=== PATIENT | female | born 1990 | race Caucasian/White ===

== ENCOUNTER 2021-05-23 16:08 | Emergency (ER) | payer OTHER, SELFPAY ==
--- NOTE | 2021-05-23 16:11 | ED.URI ---
HPI - URI/Sore Throat General Chief Complaint: Recheck/Abnormal Lab/Rx Stated Complaint: Trouble breathing Time Seen by Provider: 05/23/21 16:11 Source: patient and RN notes reviewed History of Present Illness HPI Narrative: Patient is a 30-year-old female who presents the urgent care requesting a refill of her inhaler. Patient states that she is recently going through switching physicians and she has been unable to get a refill of the inhaler. Patient states that her appointment with a new physician is not until the end of May. Patient denies of any shortness of breath but states she has had intermittent difficulty breathing due to her chronic asthma and recent weather changes. Patient denies of any cough or upper respiratory complaints. No other acute complaints. No acute distress noted. Patient read the plan of care. Some parts of this dictation were generated by voice recognition software and may contain typographical and/or grammatical inaccuracies. Related Data Home Medications Medication Instructions Recorded Confirmed albuterol sulfate 2 puff INHALATION PRN PRN 05/23/21 05/23/21 budesonide-formoterol [Symbicort] 2 puff INHALATION BID 05/23/21 05/23/21 montelukast 10 mg PO DAILY 05/23/21 05/23/21 Allergies Allergy/AdvReac Type Severity Reaction Status Date / Time No Known Allergies Allergy Verified 05/23/21 16:16 Review of Systems Review of Systems: CONSTITUTIONAL: Denies fever, chills, or sweats. EYES: Denies visual changes, redness, or discharge. ENT: Denies rhinorrhea, congestion, sore throat, or otalgia. CARDIOVASCULAR: Denies chest pain, palpitations, or edema. RESPIRATORY: Reports of intermittent acute on chronic dyspnea due to asthma GASTROINTESTINAL: Denies abdominal pain, nausea, vomiting, or diarrhea. GENITOURINARY: Denies dysuria or hematuria. SKIN: Denies rash or itching. MUSCULOSKELETAL: Denies back pain, joint pain, or myalgia. NEUROLOGIC: Denies headache, numbness, or weakness. All other systems reviewed are negative, except as documented in HPI. PMFSH Comments At the time of my signature, I reviewed and agree with the nursing past medical, surgical, social, and family history. There is no relevant family history pertinent to the patient complaint. Exam Narrative: GENERAL: This is a well-nourished, well-developed patient, in no apparent distress. HEAD: normocephalic, atraumatic. EYES: PERRL. Sclera clear/white. Vision is grossly intact. EARS: External ears normal NOSE: External nose normal with no obvious nasal discharge, nares without redness, clear rhinorrhea. THROAT: Mucous membranes moist NECK: Neck supple CARDIOVASCULAR: Regular rate and rhythm without murmurs, gallops, or rubs. RESPIRATORY: Clear to auscultation. Breath sounds equal bilaterally. No wheezes, rales, or rhonchi. SKIN: warm, intact with no suspicious lesions or rash, good texture and turgor. NEURO: awake, alert, and oriented to person, place and time. There were no obvious focal neurologic abnormalities. EXTREMITIES: No clubbing, cyanosis, or edema. Course Vital Signs Vital signs: Vital Signs Temperature 98.1 F 05/23/21 16:18 Pulse Rate 94 05/23/21 16:18 Respiratory Rate 20 05/23/21 16:18 Blood Pressure 139/88 05/23/21 16:18 Pulse Oximetry 100 05/23/21 16:18 Temperature 98.1 F 05/23/21 16:18 Pulse Rate 94 05/23/21 16:18 Respiratory Rate 20 05/23/21 16:18 Blood Pressure 139/88 05/23/21 16:18 Pulse Oximetry 100 05/23/21 16:18 Reviewed MDM - URI/Sore Throat MDM Narrative Medical decision making narrative: Patient is aware that our facility is not used for chronic medication refills however as a one-time courtesy we will refill her inhaler. Advised the patient to use the inhaler as directed. If you develop any increase in symptoms associated with severe shortness of breath or chest tightness?go to the emergency room. Follow-up with your new primary care physician as schedule
[2021-05-23 16:18] VITALS: BP 139/88; PULSE 94; RESP 20; TEMP 36.7; O2SAT 100
== END 2021-05-23 16:27 | disposition home or self-care (01) ==
PROVIDERS: Emergency Provider Nurse Practitioner Family
DX: Z76.0 Encounter for issue of repeat prescription (principal); J45.909 Unspecified asthma, uncomplicated
CPT/HCPCS: 99213; G0463

== ENCOUNTER → 2022-10-14 11:18 | Outpatient (CLI) | payer OTHER, SELFPAY ==
--- NOTE | ~2022-10-14 | XR_ITS ---
EXAM: XR lumbar spine min 4V DATE: 10/14/2022 11:57 HISTORY: Lumbago x 6 months . COMPARISON: None available. FINDINGS: 6 nonrib-bearing lumbar-type vertebral bodies, likely due to hypoplastic/absent ribs at T1 2. The last fully formed and hydrated disc will be designated L5-S1. Pedicles intact. Normal vertebra l body alignment. Mild anterior wedge deformity at T10-T12. Disc spaces maintained. Minimal marginal osteophytosis at L3-4 and L4-5. Mild facet sclerosis and hypertrophy in the lower lumbar spine. No fr acture or dislocation. IMPRESSION: Mild anterior wedge deformity at T10-T12, likely physiologic, unless accompanied by acute pain/tenderness. Mild lower lumbar degenerative disc disease. Mild lower lumbar facet arthropathy. Reviewed, dictated and finalized at location K. IMPRESSION: Mild anterior wedge deformity at T10-T12, likely physiologic, unles s accompanied by acute pain/tenderness. Mild lower lumbar degenerative disc dis ease. Mild lower lumbar facet arthropathy.
== END ==
PROVIDERS: PCP Family Medicine; Visit Provider Family Medicine
DX: M54.50 Low back pain, unspecified (principal); M51.36 Other intervertebral disc degeneration, lumbar region; M47.814 Spondylosis without myelopathy or radiculopathy, thoracic region
CPT/HCPCS: 72110

== ENCOUNTER 2022-10-23 10:40 | Emergency (ER) | payer OTHER, SELFPAY ==
--- NOTE | 2022-10-23 10:44 | ED.URI ---
HPI - URI/Sore Throat General Chief Complaint: Upper Respiratory Infection Stated Complaint: strep test Time Seen by Provider: 10/23/22 10:44 Source: patient Mode of arrival: ambulatory Limitations: no limitations History of Present Illness HPI Narrative: Marla is a 32-year-old female patient presenting to the clinic today with complaints of a sore throat times 5 days. She is requesting a strep test. She reports she has also had some body aches chills. No known fever. 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 MD elicited complaint: sore throat, nasal congestion and other (Body aches and chills) Related Data Home Medications Medication Instructions Recorded Confirmed montelukast 10 mg tablet 10 mg PO DAILY 05/23/21 10/23/22 Allergies Allergy/AdvReac Type Severity Reaction Status Date / Time cat dander Allergy Mild wheezing, Verified 10/23/22 10:45 itching dog dander Allergy Mild wheezing, Verified 10/23/22 10:45 itching Review of Systems Review of Systems: Pertinent positives per HPI. Patient denies any fever, chills, rash, headache, visual changes, dizziness, cough, shortness of breath, chest pain, palpitations, nausea, vomiting, diarrhea, constipation, abdominal pain, or any urinary issues. [facility] Past Medical History Medical History Asthma H/O blood transfusion reaction 1991 Surgical History Surgical History S/P hernia surgery As a baby Family History Family History Grandparent Alcoholism Asthma Diabetes mellitus Hypertension Heart disease Mother Melanoma Social History Social History Smoking status: Never smoker Alcohol intake: current Alcohol use details: socially only Substance use: never Lack of Transportation: No Lack of Food: Never True Current Housing: Decline to Answer Concerned About Future Housing: Decline to Answer Difficulty Paying Gas/Electric Bills: Decline to Answer Difficulty Paying for Meds: Decline to Answer Currently Unemployed: No Education: Master's Degree or Higher Difficulty w/ Childcare or Family Care: Decline to Answer Comments At the time of my signature, I reviewed and agree with the nursing past medical, surgical, social, and family history. There is no relevant family history pertinent to the patient complaint. Exam Narrative: General: Well-developed, well nourished, in no apparent distress Head: Normocephalic, atraumatic Eyes: Pupils equally round and reactive to light bilaterally, EOM intact, sclera and conjunctive clear, no discharge, lids normal Ears: TMs intact and congested, ear canals clear, no drainage, grossly hearing normal. Nose: Nares patent, clear discharge, no inflammation, no sinus tenderness. Mouth: Oral pharynx red with bilateral tonsillar enlargement without lesions or masses, good dentition, MMM. Neck: Supple, trachea midline, enlargement of anterior cervical nodes, no thyroid masses or goiter palpable. Cardio: Regular rate and rhythm, s1 and s2 normal, no murmur appreciated. Resp: Clear to auscultation bilaterally, no rhonchi, rales, wheezing or rubs Course Course Emergency Course: Portions of this record may have been created with voice recognition software. Level of Care: Express Care Visit Vital Signs Vital signs: Vital signs reviewed MDM - URI/Sore Throat MDM Narrative Medical decision making narrative: At the time of visit patient is resting on the exam table. Strep screen was obtained and was positive in the clinic today. Prescription for amoxicillin was sent to the pharmacy and supportive measures were discussed with the patient she voiced understanding d
[2022-10-23 10:54] VITALS: BP 138/92; PULSE 89; RESP 16; TEMP 36.3; O2SAT 99
== END 2022-10-23 11:07 | disposition home or self-care (01) ==
PROVIDERS: Emergency Provider Nurse Practitioner Family; PCP Family Medicine
DX: J02.0 Streptococcal pharyngitis (principal); J45.909 Unspecified asthma, uncomplicated
CPT/HCPCS: 87880; 99213; G0463

== ENCOUNTER 2023-04-29 11:04 | Outpatient (CLI) | payer OTHER, SELFPAY ==
--- NOTE | ~2023-04-29 | XR_ITS ---
Left Knee Technique: AP, lateral, and sunrise views were obtained. Clinical History: Pain Findings: No fracture or dislocation is seen. Osseous alignment is anatomic. Joint spaces are preserv ed without degenerative or erosive change. Soft tissues are unremarkable. No joint effusion is seen. Impression: Unremarkable left knee radiographs. Reviewed, dictated and finalized at location . [facility] Impression: Unremarkable left knee radiographs.
== END 2023-04-29 11:05 | disposition home or self-care (01) ==
PROVIDERS: PCP Family Medicine; Visit Provider Family Medicine
DX: M25.562 Pain in left knee (principal); G89.29 Other chronic pain
CPT/HCPCS: 73562

== ENCOUNTER 2025-03-08 15:09 | Outpatient (CLI) | payer OTHER, SELFPAY ==
--- NOTE | ~2025-03-08 | XR_ITS ---
XR lumbar spine min 4V Indication: Leg heaviness x1 week and lateral foot pain Comparison: None Findings: The vertebral heights are intact. No fracture or subluxation. Moderate loss of disc height throughout Soft tissues unremarkable Impression: No acute abnormality. Reviewed, dictated and finalized at location P. Impression: No acute abnormality.
== END 2025-03-08 15:10 | disposition home or self-care (01) ==
PROVIDERS: PCP Family Medicine; Visit Provider Family Medicine
DX: M54.16 Radiculopathy, lumbar region (principal)
CPT/HCPCS: 72110